=== PATIENT | female | born 1960 | race Caucasian/White ===

== ENCOUNTER → 2017-11-09 06:22 | Outpatient (CLI) | payer OTHER, SELFPAY ==
--- NOTE | 2017-11-09 12:44 | NEURO ---
NCS and/or EMG Patient Report Ordering Doctor: Bull Magaña DATE OF SERVICE: 11/09/17 Afua Mendiola is a 57-year-old female who presents for electrodiagnostic testing of the upper limbs. She reports numbness and tingling in both hands. Electrodiagnostic findings: Median motor nerve bilaterally demonstrates prolonged distal latency with normal amplitude and conduction velocity. Latency is far more prolonged on the right side. Prolonged median sensory latency is noted bilaterally, more pronounced on the right side. Normal ulnar motor latency is noted bilaterally. Normal ulnar conduction across the elbow bilaterally. Mildly prolonged right median F wave. Prolonged right ulnar sensory latency is noted. On needle EMG, all muscles tested showed no evidence of denervation with normal motor unit action potentials. Electrodiagnostic impression: This is an abnormal study in the upper limbs. 1. Electrodiagnostic findings demonstrate bilateral median mononeuropathy. This is consistent with a moderate left carpal tunnel syndrome and a highly advanced right carpal tunnel syndrome. 2. No electrodiagnostic evidence for ulnar neuropathy. If there are any further questions, please do not hesitate to contact me.
== END ==
PROVIDERS: Family Provider Internal Medicine; PCP Internal Medicine; Visit Provider Orthopaedic Surgery
DX: R20.0 Anesthesia of skin (principal); M79.641 Pain in right hand; M79.642 Pain in left hand
CPT/HCPCS: 95886; 95913

== ENCOUNTER 2023-02-17 12:01 | Emergency (ER) | payer MEDICAID, SELFPAY ==
[2023-02-17 12:01] VITALS: BP 133/108; PULSE 90; RESP 16; TEMP 36.4; O2SAT 100; BMI 29.2
--- NOTE | 2023-02-17 12:51 | EX.ED.DYSGE1 ---
HPI <RYAN Howe - Last Filed: 02/17/23 14:23> History of Present Illness Chief Complaint: Abd Pain Narrative Narrative: Patient is a 62-year-old female history of chronic pain, anxiety GERD, migraine headaches who presents to the emergency department for ongoing abdominal pain. Patient states that she has had diarrhea and abdominal cramping for the last 4 days. Patient was seen at [facility] today, was discharged approximately 1120 that came straight here. She did receive laboratory values a stool study as well as a CT scan. Patient was diagnosed with gastroenteritis, possible infectious diarrhea was placed on Cipro as well as given 3 Percocet tablets. She states that she did not get receive great discharge instructions, and was concern for small bowel obstruction, appendicitis. So she came straight here after leaving [place] ER. She does not complain of any new symptoms. PFSH <RYAN Howe - Last Filed: 02/17/23 14:23> [facility] Medical History (Updated 02/17/23 @ 14:22 by RYAN Howe) Anxiety associated with depression Arthritis Carpal tunnel syndrome, bilateral upper limbs Chronic nausea Dysphagia Enlarged thyroid Fibromyalgia GERD (gastroesophageal reflux disease) Migraines SIMONE (obstructive sleep apnea) Pain, joint, shoulder POP-Q stage 2 cystocele Prolapse of uterus Urinary frequency Vaginal atrophy Home Medications acetaminophen 650 mg tablet,extended release (Tylenol Arthritis Pain) 1,300 mg PO Q12H 02/10/23 [History Last Taken Unknown] buspirone 5 mg tablet 5 mg PO BID 02/10/23 [History Last Taken Unknown] conjugated estrogens 0.625 mg/gram vaginal cream (Premarin) 0.625 mg vaginal 2XW 02/10/23 [History Last Taken Unknown] ergocalciferol (vitamin D2) 1,250 mcg (50,000 unit) capsule 1,250 mcg PO QWEEK 02/10/23 [History Last Taken Unknown] fluticasone propionate 50 mcg/actuation nasal spray,suspension (Flonase Allergy Relief) 2 spray intranasal DAILY 02/10/23 [History Last Taken Unknown] lorazepam 0.5 mg tablet 0.5 mg PO DAILY PRN 02/10/23 [History Last Taken Unknown] naproxen 500 mg tablet 500 mg PO BID PRN 02/10/23 [History Last Taken Unknown] ondansetron 4 mg disintegrating tablet 4 mg PO Q8H PRN 02/10/23 [History Last Taken Unknown] pantoprazole 40 mg tablet,delayed release 40 mg PO DAILY 02/10/23 [History Last Taken Unknown] solifenacin 10 mg tablet 10 mg PO DAILY 02/10/23 [History Last Taken Unknown] sumatriptan succinate 100 mg tablet See Rx Instructions PO .COMPLEX 02/10/23 [History Last Taken Unknown] topiramate 50 mg tablet 50 mg PO DAILY 02/10/23 [History Last Taken Unknown] venlafaxine 150 mg capsule,extended release 24 hr 150 mg PO DAILY 02/10/23 [History Last Taken Unknown] venlafaxine 75 mg capsule,extended release 24 hr 75 mg PO DAILY 02/10/23 [History Last Taken Unknown] dicyclomine 20 mg tablet 20 mg PO TID #20 tabs 02/17/23 [Rx Last Taken Unknown] ondansetron 4 mg disintegrating tablet 4 mg PO Q8H PRN PRN Nausea #10 tabs 02/17/23 [Rx Last Taken Unknown] Allergy/AdvReac Type Severity Reaction Status Date / Time rofecoxib [From Vioxx] Allergy Mild Rash Verified 02/17/23 12:04 cat dander Allergy NEEDS Verified 02/17/23 12:04 FOLLOW-UP grass pollen Allergy NEEDS Verified 02/17/23 12:04 FOLLOW-UP horse dander Allergy NEEDS Verified 02/17/23 12:04 FOLLOW-UP house dust Allergy NEEDS Verified 02/17/23 12:04 FOLLOW-UP mold Allergy NEEDS Verified 02/17/23 12:04 FOLLOW-UP ragweed pollen Allergy NEEDS Verified 02/17/23 12:04 FOLLOW-UP tree and shrub pollen Allergy NEEDS Verified 02/17/23 12:04 FOLLOW-UP cyclobenzaprine AdvReac Elevated BP Verified 02/17/23 12:04 [From Flexeril] duloxetine [From Cymbalta] AdvReac Stuttering Verified 02/17/23 12:04 meloxicam AdvReac Stuttering Verified 02/17/23 12:04 sertraline HCl [From Zoloft] AdvReac Upset Verified 02/17/23 12:04 Stomach Family History (Updated 02/10/23 @ 16:12 by Karolina Muller) Mother Hypertension Father Hypertension Diabetes Colon cancer Sister Alzheimer disease Grandmother Stomach cancer Surgical History History of foot surgery History of hysterectomy Hx of colonoscopy Social History (Updated 02/10/23 @ 16:13 by Karolina Muller) Smoking Status: Never smoker alcohol intake: never substance use type: does not use ROS <YRAN Howe - Last Filed: 02/17/23 14:23> ROS ED ROS Narrative Constitutional: Negative for fever, chills, weight loss, weakness Eyes: Negative for vision loss, vision change, double vision ENT: Negative for any sore throat, ear pain, congestion Cardiovascular: Negative for any chest pain, tightness, palpitations Respiratory: Negative for any cough, sputum production, hemoptysis, dyspnea, dyspnea on exertion, orthopnea Gastrointestinal: Negative for any vomiting, constipation, blood in stool, blood in vomit. Positive for abdominal pain, nausea, diarrhea : Negative for any urinary frequency, dysuria, retention, blood in urine Muscle skeletal: Negative for any muscle joint pain, stiffness, arthralgias, neck pain, back pain., Positive for myalgias Neurological: Negative for any headache, syncope, numbness or tingling, dizziness Skin: Negative for any rashes, lumps, itching, abrasions, lacerations Psychiatric: Negative for any depression, anxiety, stress, suicidal ideation, homicidal ideation Hematologic: Negative for any easy bruising, excessive bruising, easy bleeding Allergies: Negative for any eczema, hives, rash EXAM <RYAN Howe - Last Filed: 02/17/23 14:23> Physical Exam Narrative Exam Narrative: Vital signs reviewed. HEET: Head normocephalic atraumatic, TMs clear bilaterally. Posterior pharynx is clear, dry mucous membranes. Nares clear bilaterally. Neck: Supple with no lymphadenopathy or tenderness. No signs of meningismus, negative jolt sign. Cardiac: Regular rate and rhythm no murmurs gallops or rubs, equal peripheral pulses bilaterally. Respiratory: Lungs clear to auscultation bilaterally. No chest tenderness. Abdomen: Soft, nontender, nondistended. No abdominal bruit or pulsatile masses. No hepatosplenomegaly Extremities: No peripheral edema, no signs of gross trauma or deformity. Active full range of motion of all extremities. Neuro: Cranial nerves II through XII intact, no focal neurological deficits. Skin: Clean dry and intact with no rash, purpura, petechiae, vesicles or pustules. Backs/flank: No CVA tenderness, no midline spinal tenderness, no deformity. Psych: Normal mood and affect. No SI, HI or acute psychosis. Const Vital Signs: 02/17/23 12:01 02/17/23 14:36 Temperature 97.5 F L Temperature Source Temporal Pulse Rate 90 Respiratory Rate 16 Blood Pressure 133/108 H 128/74 H Blood Pressure Mean 116 Pulse Ox 100 Oxygen Delivery Method Room Air <Dr. Bull Griffin MD - Last Filed: 02/17/23 16:20> Physical Exam Const Vital Signs: 02/17/23 12:01 02/17/23 14:36 Temperature 97.5 F L Temperature Source Temporal Pulse Rate 90 Respiratory Rate 16 Blood Pressure 133/108 H 128/74 H Blood Pressure Mean 116 Pulse Ox 100 Oxygen Delivery Method Room Air MDM <RYAN Howe - Last Filed: 02/17/23 14:23> [facility] Treatment and Re-Evaluation :: Patient appears generally well, patient appears nontoxic, vital signs are stable. Patient presents to the emergency department for reevaluation after being seen in [place] ER for abdominal pain, nausea, diarrhea. Patient received a full abdominal work-up, she received laboratory values as well as a CT scan of the abdomen pelvis. She was diagnosed with gastroenteritis, questionable infectious diarrhea, placed on Cipro as well as pain medicine. I believe that she is here secondary to not receiving sufficient discharge instructions. She was concerned for appendicitis, small bowel obstruction which I discussed with her is seen with a CT scan of the abdomen pelvis. She did not know this. However I will receive some records from [place] just to ensure continuation of the story as well as give the patient IV fluids, Bentyl Toradol as well as Zofran. On reassessment, the patient felt much better. I did fax the release for medical records however not received them yet. Patient did call her call light and would like to be discharged home. Patient states that her belly is feeling much more relaxed, she feels more hydrated and like to be discharged home. I did let her know that I do not have the medical records, she states that is fine, she feels well and for discharge. I do agree with this, the patient is likely suffering from gastroenteritis, she will continue her regular medications given to her by the previous hospital however I will add Bentyl as well as Zofran. She will maintain her oral intake, she was given return precaution. She will follow-up outpatient. <Dr. Bull Griffin MD - Last Filed: 02/17/23 16:20> [facility] Treatment and Re-Evaluation Comments:: Seen and evaluated independently and in conjunction with nurse practitioner. Agree with notes above unless documented otherwise. Patient with about 4 days of diffuse central upper and lower abdominal discomfort, nausea, diarrhea nonbloody. Exam: Mild diffuse lower abdominal tenderness and epigastric tenderness no guarding or rebound, normal bowel sounds no distention. Well-appearing in no distress appears hydrated. As above, patient was just at a different ER and had a very thorough-sounding work-up including diarrhea that she provided to them for testing. She was discharged with prescriptions that she has not gotten yet, it sounds like she simply did not understand the discharge instructions. While treating her with some medications and fluids here at her request, she did feel better, we requested the ancillary testing records, however she wanted to leave before they arrived which I think is fine. Discharge Plan Triage Chief Complaint: Abd Pain ED Midlevel Provider: Lei Mustafa ED Provider: Bull Griffin Dx/Rx/DC Orders Clinical Impression: Gastroenteritis, Diarrhea, Abdominal pain Instructions: ED Diet Vomiting Diarrhea, ED Gastritis (Adult) Prescriptions: New dicyclomine 20 mg tablet 20 mg PO TID Qty: 20 0RF ondansetron 4 mg tablet,disintegrating 4 mg PO Q8H PRN PRN (Reason: Nausea) Qty: 10 0RF No Action ergocalciferol (vitamin D2) 1,250 mcg (50,000 unit) capsule 1,250 mcg PO QWEEK ondansetron 4 mg tablet,disintegrating 4 mg PO Q8H PRN sumatriptan succinate 100 mg tablet See Rx Instructions PO .COMPLEX Rx Instructions: take 1 tab at onset of headache; if no relief, may repeat 1 tab after at least 2 hrs; max = 2 tabs/24 hrs PO pantoprazole 40 mg tablet,delayed release (DR/EC) 40 mg PO DAILY venlafaxine 150 mg capsule,extended release 24hr 150 mg PO DAILY Rx Instructions: [phone] daily solifenacin 10 mg tablet 10 mg PO DAILY fluticasone propionate [Flonase Allergy Relief] 50 mcg/actuation spray,suspension 2 spray intranasal DAILY Rx Instructions: administer into each nostril topiramate 50 mg tablet 50 mg PO DAILY buspirone 5 mg tablet 5 mg PO BID lorazepam 0.5 mg tablet 0.5 mg PO DAILY PRN Premarin 0.625 mg/gram cream 0.625 mg vaginal 2XW acetaminophen [Tylenol Arthritis Pain] 650 mg tablet extended release 1,300 mg PO Q12H venlafaxine 75 mg capsule,extended release 24hr 75 mg PO DAILY Rx Instructions: [phone] daily naproxen 500 mg tablet 500 mg PO BID PRN Rx Instructions: With food Primary Care Provider: Salazar Magaña Referrals: Salazar Magaña MD [Primary Care Provider] - Activity Restrictions/Additional Instructions: Please maintain your hydration Disposition Disposition: Home, Self Care Discharge Date/Time: 02/17/23 14:38
[2023-02-17] MEDS: 0.9% Normal Saline 1,000 ML 1000 ML IV (12:59)
[2023-02-17] MEDS: Ketorolac 15 MG/ML Vial IV (12:59)
[2023-02-17] MEDS: Ondansetron 4 MG/2 ML Vial IV (13:00)
[2023-02-17] MEDS: Dicyclomine 20 MG/2 ML Vial IM (13:01)
[2023-02-17 14:36] VITALS: BP 128/74
== END 2023-02-17 14:38 | disposition home or self-care (01) ==
PROVIDERS: Emergency Provider Emergency Medicine; PCP Internal Medicine; Visit Provider Emergency Medicine
DX: K52.9 Noninfective gastroenteritis and colitis, unspecified (principal); G43.909 Migraine, unspecified, not intractable, without status migrainosus; R10.9 Unspecified abdominal pain; F41.8 Other specified anxiety disorders; Z79.899 Other long term (current) drug therapy; Z79.818 Long term (current) use of other agents affecting estrogen receptors and estrogen levels; K21.9 Gastro-esophageal reflux disease without esophagitis; R35.0 Frequency of micturition; Z90.710 Acquired absence of both cervix and uterus
CPT/HCPCS: 96361; 96372; 96374; 96375; 99283; J7030; A4216; J2405

== ENCOUNTER → 2023-02-22 | Outpatient (CLI) | payer MEDICAID, SELFPAY ==
--- NOTE | 2023-02-22 | ASPIG_PTH ---
PATIENT: HAKAN MERCADO LOC: [facility] U#:[id number] AGE/SX: 62/F ROOM: RE02/22/[address]: Dr. Tracy Lopez MD : 1960 BED: DIS: 02/22/2023 SPEC #: [id number] RECD: 02/22/23 16:00 STATUS: SHELLEY REMichelle #: [id number] ANIA: 02/22/23 00:[address]: Tracy Lopez DEPT: CYTOLOGY RECD BY: Jose Hawkins ENTERED: 02/23/23 11:23 SP TYPE: ASP OUT OTHR DR: Dr. Salazar Magaña MD Tissues: A - Thyroid gland, NOS B - Thyroid gland, NOS Procedures: FNA Specimen Adequacy Special Stain Group II Surgery Specimen Level IV Cytology Other HEADER OPERATION: Fine needle aspiration, right thyroid PRE-OP DIAGNOSIS: Abnormal thyroid ultrasound TISSUE SUBMITTED: A ? FNA right thyroid fluid, B - FNA right thyroid x8 slides DIAGNOSIS CYTOLOGY A. Right thyroid fluid, fine needle aspiration (cytospin and cell block): Consistent with benign follicular/colloid nodule ([place] Category II). Adequate for evaluation. See comment. B. Right fluid, fine needle aspiration (smears): Consistent with benign follicular/colloid nodule ([place] Category II). Adequate for evaluation. See comment. SJ:trinidad 02/24/2023 COMMENT Correlation with clinical, radiologic findings and appropriate follow up are necessary. The [place] System for thyroid diagnostic categorization was used in the evaluation of this case. CYTOLOGY STUDY Slides are reviewed. CYTOLOGY GROSS A - Received is 30 ml of hazy light red fluid labeled with the patient's name and and designated per the requisition as right thyroid. Submitted for cytology preparation including cell block. B - Received are eight smears labeled with the patient's name and designated per the requisition as right thyroid. Submitted for staining. / trinidad 02/23/2023 TC:5 CPT: 59641 x2, [id number]
== END | disposition home or self-care (01) ==
PROVIDERS: PCP Internal Medicine; Visit Provider Surgery
DX: R93.89 Abnormal findings on diagnostic imaging of other specified body structures (principal)
CPT/HCPCS: 88161; 88172; 88305; 88313

== ENCOUNTER 2023-06-20 08:35 | Emergency (ER) | payer BC, MEDICAID, SELFPAY ==
[2023-06-20 08:36] VITALS: BP 123/91; PULSE 150; RESP 16; TEMP 36.2; O2SAT 96
--- NOTE | 2023-06-20 08:48 | EKG12_ITS ---
Test Reason : CP Blood Pressure : / mmHG Vent. Rate : 109 BPM Atrial Rate : 109 BPM P-R Int : 138 ms QRS Dur : 082 ms QT Int : 344 ms P-R-T Axes : 013 -51 014 degrees QTc Int : 463 ms Sinus tachycardia Left anterior fascicular block Abnormal ECG Confirmed by EDVIN ROSENBERG, KAREN ([id number]), editor department JACKELYN VALDIVIA ([id number]) on 06/22/2023 10:41:39 AM Referred By: BB Confirmed By:KAREN PARDO MD
--- NOTE | 2023-06-20 08:51 | EDS_ITS ---
HPI History of Present Illness Chief Complaint: General Illness Informant: patient Narrative Narrative: Patient presents for multiple symptoms. She states she woke up about an hour prior to arrival with nonpleuritic discomfort in her left inframammary chest and discomfort in her jaw/neck/ears. For the past week or so, she has been having symptoms of vertigo, nausea, headache, pain throughout her abdomen which she has had off and on and woke up with earlier this morning but is not bothering her as much now, pain throughout her back, and has noted that with all of this her blood pressure has been elevated. She was seen about 3 days prior to the onset of all those symptoms, she states her blood pressure was elevated at the doctor's office but she was asymptomatic with it. She takes medication for blood pressure as of 3 days ago when she went to the ER in [place] and was started on something she is not sure what it is, but states they did an MRI there because of her vertigo symptoms and it was negative. She states she was not admitted and it was not a CT scan [facility] Medical History Anxiety associated with depression Arthritis Carpal tunnel syndrome, bilateral upper limbs Chronic nausea Dysphagia Enlarged thyroid Fibromyalgia GERD (gastroesophageal reflux disease) Migraines SIMONE (obstructive sleep apnea) Pain, joint, shoulder POP-Q stage 2 cystocele Prolapse of uterus Urinary frequency Vaginal atrophy Home Medications acetaminophen 650 mg tablet,extended release (Tylenol Arthritis Pain) 1,300 mg PO Q12H 02/10/23 [History Last Taken Unknown] buspirone 5 mg tablet 5 mg PO BID 02/10/23 [History Last Taken Unknown] conjugated estrogens 0.625 mg/gram vaginal cream (Premarin) 0.625 mg vaginal 2XW 02/10/23 [History Last Taken Unknown] ergocalciferol (vitamin D2) 1,250 mcg (50,000 unit) capsule 1,250 mcg PO QWEEK 02/10/23 [History Last Taken Unknown] fluticasone propionate 50 mcg/actuation nasal spray,suspension (Flonase Allergy Relief) 2 spray intranasal DAILY 02/10/23 [History Last Taken Unknown] lorazepam 0.5 mg tablet 0.5 mg PO DAILY PRN 02/10/23 [History Last Taken Unknown] naproxen 500 mg tablet 500 mg PO BID PRN 02/10/23 [History Last Taken Unknown] ondansetron 4 mg disintegrating tablet 4 mg PO Q8H PRN 02/10/23 [History Last Taken Unknown] pantoprazole 40 mg tablet,delayed release 40 mg PO DAILY 02/10/23 [History Last Taken Unknown] solifenacin 10 mg tablet 10 mg PO DAILY 02/10/23 [History Last Taken Unknown] sumatriptan succinate 100 mg tablet See Rx Instructions PO .COMPLEX 02/10/23 [History Last Taken Unknown] topiramate 50 mg tablet 50 mg PO DAILY 02/10/23 [History Last Taken Unknown] venlafaxine 150 mg capsule,extended release 24 hr 150 mg PO DAILY 02/10/23 [History Last Taken Unknown] venlafaxine 75 mg capsule,extended release 24 hr 75 mg PO DAILY 02/10/23 [History Last Taken Unknown] dicyclomine 20 mg tablet 20 mg PO TID #20 tabs 02/17/23 [Rx Last Taken Unknown] ondansetron 4 mg disintegrating tablet 4 mg PO Q8H PRN PRN Nausea #10 tabs 02/17/23 [Rx Last Taken Unknown] meclizine 25 mg tablet 25 mg PO Q8H PRN PRN Dizziness #20 tabs 06/20/23 [Rx Last Taken Unknown] Allergy/AdvReac Type Severity Reaction Status Date / Time rofecoxib [From Vioxx] Allergy Mild Rash Verified 06/20/23 08:36 cat dander Allergy NEEDS Verified 06/20/23 08:36 FOLLOW-UP grass pollen Allergy NEEDS Verified 06/20/23 08:36 FOLLOW-UP horse dander Allergy NEEDS Verified 06/20/23 08:36 FOLLOW-UP house dust Allergy NEEDS Verified 06/20/23 08:36 FOLLOW-UP mold Allergy NEEDS Verified 06/20/23 08:36 FOLLOW-UP ragweed pollen Allergy NEEDS Verified 06/20/23 08:36 FOLLOW-UP tree and shrub pollen Allergy NEEDS Verified 06/20/23 08:36 FOLLOW-UP cyclobenzaprine AdvReac Elevated BP Verified 06/20/23 08:36 [From Flexeril] duloxetine [From Cymbalta] AdvReac Stuttering Verified 06/20/23 08:36 meloxicam AdvReac Stuttering Verified 06/20/23 08:36 sertraline HCl [From Zoloft] AdvReac Upset Verified 06/20/23 08:36 Stomach Family History (Updated 02/10/23 @ 16:12 by Karolina Muller) Mother Hypertension Father Hypertension Diabetes Colon cancer Sister Alzheimer disease Grandmother Stomach cancer Surgical History History of foot surgery History of hysterectomy Hx of colonoscopy Social History Smoking Status: Never smoker alcohol intake: never substance use type: does not use ROS ROS ED Constitutional Constitutional ED: Denies chills or fever(s) Eyes Eyes: Denies change in vision or diplopia ENT ENT ED: Reports dizziness and vertigo; Denies abnormal hearing, rhinorrhea, sore throat, throat swelling or tinnitus Cardiovascular Cardiovascular: Reports chest pain and radiating jaw, neck or arm pain; Denies palpitations Respiratory/Chest Respiratory/Chest: Denies cough or dyspnea Gastrointestinal Gastrointestinal: Reports abdominal pain and nausea; Denies diarrhea or vomiting Genitourinary Genitourinary ED: Denies dysuria or hematuria Musculoskeletal Musculoskeletal: Reports back pain, myalgias and neck pain Integumentary Denies abscess or rash Neurologic Neurologic: Reports headache(s) and vertigo; Denies paresthesias or weakness Psychiatric Psychiatric: Denies anxiety or suicidal thoughts EXAM Physical Exam Const Vital Signs: 06/20/23 08:36 06/20/23 08:45 06/20/23 09:13 Temperature 97.1 F L Temperature Source Temporal Pulse Rate 150 H Respiratory Rate 16 Respiratory Effort Normal Respiratory Pattern Normal Blood Pressure 123/91 H Blood Pressure Mean 101 Pulse Ox 96 97 Oxygen Delivery Method Room Air Room Air Positive well nourished and well developed General Appearance ED: well developed and NAD HEENT Reports moist mucous membranes normocephalic and atraumatic Eyes PERRL and EOMs intact bilaterally Neck full ROM and supple Resp normal respiratory effort and clear to auscultation bilaterally Cardio regular rate, regular rhythm and no murmurs GI non-tender and non-distended Auscultation: normoactive bowel sounds Palpation: soft Back/Spine no CVA tenderness General Back: other FROM Extremity normal to inspection General Extremety ED: Negative for edema, pulses abnormal or tenderness General Extremity: Negative for edema or pulses abnormal Neuro oriented x3, CN's II-XII intact bilaterally and no sensory deficits noted Sensorium / Orientation: awake and alert Motor Exam: strength 5/5 throughout Psych Mood & Affect: anxious Skin no rashes or lesions noted and no wounds MDM MDM MDM Narrative Medical decision making narrative: Patient's blood pressure is normal systolic of 123. She was tachycardic in triage, on my exam she is around 110, less tachycardic, she seems very anxious. Has a history of fibromyalgia, as her exam is very benign and she complains of pain everywhere except for the legs this may be related. We were able to get old records from her hospital visit 3 days ago, indeed she had an MRI that was negative for any acute ischemic abnormalities. Here her EKG is unremarkable, her initial troponin is negative, we offered her nitroglycerin after aspirin and Zofran, she stated her chest discomfort resolved prior to getting any medications, as did her jaw and ear discomfort, and she did not require any nitroglycerin. Chest x-ray 1 view on my interpretation negative. Differential includes acute coronary syndrome as well as dysrhythmias, which we do not see on her EKG here, it appears to be normal except for mild tachycardia 109, as well as GI etiologies. She is still having some vertiginous symptoms. I will prescribe her some meclizine and give her a dose here and have her follow-up with her doctor as an outpatient she is comfortable with that plan. History & Record Review Additional record(s) reviewed:: Prior outpatient record (ED visit at outside hospital see above) and No prior records Lab Data Attestation: I reviewed the patient's lab results. Labs: Laboratory Results - last 24 hr 06/20/23 06/20/23 09:00 11:12 WBC 13.9 H RBC 5.37 Hgb 14.9 Hct 46.0 MCV 85.7 MCH 27.7 MCHC 32.4 RDW Std Deviation 43.1 RDW Coeff of Bryanna 13.7 Plt Count MPV 8.2 Immature Gran % (Auto) 0.300 Neut % (Auto) 70.7 H Lymph % (Auto) 17.2 L Luce % (Auto) 10.1 H Eos % (Auto) 1.3 Baso % (Auto) 0.4 Absolute Neuts (auto) 9.8 H Absolute Lymphs (auto) 2.39 Nucleated RBC % 0 Platelet Estimate ADEQUATE Sodium 136 Potassium 3.5 Chloride 100 Carbon Dioxide 26.0 Anion Gap 10 BUN 18 Creatinine 0.95 Estim Creat Clear Calc 53.70 Est GFR (MDRD) Af Amer 77 Est GFR (MDRD) Non-Af 64 BUN/Creatinine Ratio 19.0 Glucose 111 H Calcium 9.3 Troponin I High Sens 6 7 Radiography Diagnostic Testing: Clinical Impression(s) from Imaging Studies Chest X-Ray 06/20/23 09:20 IMPRESSION: No acute thoracic pathology. Electronically Signed: Jas Rutherford MD at 9:47 EDT , Rhythm Strip Rhythm Strip: Sinus Tach Rate: 110 Ectopy: None EKG Initial EKG: Attestation: I personally reviewed and interpreted this EKG as follows: Interpretation: No Acute Injury Pattern, Sinus Tachycardia and LAFB Prior: No Prior Discharge Plan Triage Chief Complaint: General Illness ED Provider: Bull Griffin Dx/Rx/DC Orders Clinical Impression: Atypical chest pain, Vertigo Instructions: Vertigo Inner Ear Problems, ED Chest Pain, Uncertain Cause Prescriptions: New meclizine [meclizine] 25 mg tablet 25 mg PO Q8H PRN PRN (Reason: Dizziness) Qty: 20 0RF No Action ergocalciferol (vitamin D2) 1,250 mcg (50,000 unit) capsule 1,250 mcg PO QWEEK ondansetron 4 mg tablet,disintegrating 4 mg PO Q8H PRN sumatriptan succinate 100 mg tablet See Rx Instructions PO .COMPLEX Rx Instructions: take 1 tab at onset of headache; if no relief, may repeat 1 tab after at least 2 hrs; max = 2 tabs/24 hrs PO pantoprazole 40 mg tablet,delayed release (DR/EC) 40 mg PO DAILY venlafaxine 150 mg capsule,extended release 24hr 150 mg PO DAILY Rx Instructions: [phone] daily solifenacin 10 mg tablet 10 mg PO DAILY fluticasone propionate [Flonase Allergy Relief] 50 mcg/actuation spray,suspension 2 spray intranasal DAILY Rx Instructions: administer into each nostril topiramate 50 mg tablet 50 mg PO DAILY buspirone 5 mg tablet 5 mg PO BID lorazepam 0.5 mg tablet 0.5 mg PO DAILY PRN Premarin 0.625 mg/gram cream 0.625 mg vaginal 2XW acetaminophen [Tylenol Arthritis Pain] 650 mg tablet extended release 1,300 mg PO Q12H venlafaxine 75 mg capsule,extended release 24hr 75 mg PO DAILY Rx Instructions: [phone] daily naproxen 500 mg tablet 500 mg PO BID PRN Rx Instructions: With food dicyclomine 20 mg tablet 20 mg PO TID Qty: 20 0RF ondansetron 4 mg tablet,disintegrating 4 mg PO Q8H PRN PRN (Reason: Nausea) Qty: 10 0RF Primary Care Provider: Salazar Magaña Referrals: Salazar Magaña MD [Primary Care Provider] - As soon as possible Disposition Disposition: Home, Self Care
[2023-06-20] MEDS: Aspirin 81 MG TAB.CHEW 162 MG PO (09:09)
[2023-06-20] MEDS: Ondansetron 4 MG/2 ML Vial IV (09:09)
[2023-06-20 09:12] LABS: Absolute Lymphocyte Count 2.39 X10^3/uL (0.83-4.51); Absolute Neutrophil Count 9.8 X10^3/uL (2.0-7.7); Basophil# 0.06 X10^3/uL; Basophil% 0.4 % (0-1); Eosinophil# 0.18 X10^3/uL; Eosinophils% 1.3 % (0-5); Hemoglobin 14.9 g/dL (12.0-15.0); Lymphocyte # 2.39 X10^3/ul (0.83-4.51); Lymphocyte % 17.2 % (19-41); Mean Corp Hgb Conc 32.4 g/dL (32-36); Mean Corpuscular Hgb 27.7 pg (27.0-32.0); Mean Corpuscular Volume 85.7 fL (81-99); Mean Platelet Vol. 8.2 fl (6.2-12.0); Monocyte% 10.1 % (0-10); NRBC Flagged by Analyzer 0 % (0-5); Neutrophil # 9.82 X10^3/uL (2.7-7.7); Neutrophil % 70.7 % (47-70); POSITIVE COUNT YES; RBC Distribution Width CV 13.7 % (11.6-14.6); RBC Distribution Width SD 43.1 fl (35.1-43.9); Red Blood Count 5.37 M/mm3 (4.2-5.4); White Blood Count 13.9 K/mm3 (4.4-11.0)
[2023-06-20 09:13] VITALS: O2SAT 97
--- NOTE | 2023-06-20 09:20 | RAD_ITS ---
STUDY: X-RAY CHEST REASON FOR EXAM: Female, 62 years old. Chest pain TECHNIQUE: Frontal view of the chest COMPARISON: None. FINDINGS: The lungs are clear. There are no pleural effusions. There is no pneumothorax. The heart is normal in size. The visualized osseous structures are within normal limits. RAD/Chest 1 View (Portable) IMPRESSION: No acute thoracic pathology. Electronically Signed: Jas Rutherford MD at 9:47 EDT ,
[2023-06-20 09:32] LABS: Anion Gap 10 (5-15); BUN 18 mg/dL (7-18); Calcium,Total 9.3 mg/dL (8.5-10.1); Chloride 100 mmol/L (98-107); Creatinine, Serum 0.95 mg/dL (0.55-1.02); EST Glomerular Filtration Rate 64 mL/min (>60); Est Glom Filt Rate - Afr Amer 77 mL/min (>60); Glucose 111 mg/dL (74-106); Potassium 3.5 mmol/L (3.5-5.1); Sodium Level 136 mmol/L (136-145); Troponin-I HS (w/2H Reflex) 6 pg/mL (3.0-54.0)
[2023-06-20 10:00] LABS: Differential Indicated SCAN CRITERIA MET
[2023-06-20 10:01] LABS: Platelet Estimate ADEQUATE (ADEQ)
[2023-06-20 11:06] LABS: Reflex Troponin-HS? (from REC) Y
[2023-06-20 11:58] LABS: Troponin-I HS 7 pg/mL (3.0-54.0)
[2023-06-20 12:25] VITALS: BP 135/84; PULSE 105; RESP 16; O2SAT 97
[2023-06-20] MEDS: Meclizine HCl 25 MG Tablet PO (12:30)
== END 2023-06-20 12:43 | disposition home or self-care (01) ==
PROVIDERS: Emergency Provider Emergency Medicine; PCP Internal Medicine; Visit Provider Emergency Medicine
DX: R07.89 Other chest pain (principal); R42 Dizziness and giddiness; F41.8 Other specified anxiety disorders; K21.9 Gastro-esophageal reflux disease without esophagitis; G43.909 Migraine, unspecified, not intractable, without status migrainosus; Z90.710 Acquired absence of both cervix and uterus; Z79.899 Other long term (current) drug therapy
CPT/HCPCS: 71045; 80048; 84484; 85025; 93005; 96374; 99285; A4216; J2405

== ENCOUNTER 2023-08-22 08:48 | Outpatient (RCR) | payer BC, MEDICAID, SELFPAY ==
--- NOTE | 2023-08-22 10:37 | HP.SP.EV_ITS ---
History History Date of Eval: 08/22/23 Attending Doctor: Referring Doctor: Reason for Referral: CHOKING,COUGH/RX HERE Medical Diagnosis (from RX): coughing & choking espisodes Previous speech therapy: No Results: Aufa is a 62 y.o. woman who was seen at [facility] for a dysphagia evaluation. Pt lives alone at home. Pt has 1 son that live in the area ([address] [place] [address]), and one son that in a car accident a few years ago. Pt's chief complaints is choking during meals and waking up choking during the night. Other Relevant Medical History/Diagnoses/Surgery: chokes at least x1 a day for the last 6 months. No known change in medical status. Coughing as well for the last 2.5 hrs, did an allergy test to determine if its a the possible cause. Family hx of dysphagia on her father's side. Pt had covid jun 2022. Pt reports she is always the last one done eating over the last few years. She stated that she has not always been this way Medications related to this diagnosis: inhaler & coughing medication. Smoking Status: Never smoker Hx Tobacco Use: Yes Pain Is pain an issue with your current prescribed condition?: No Personal Preferred language: [place] Patient Allergies Allergies Allergies: Allergies rofecoxib [From Vioxx] Allergy (Mild, Verified 06/20/23 08:36) Rash cat dander Allergy (Verified 06/20/23 08:36) NEEDS FOLLOW-UP grass pollen Allergy (Verified 06/20/23 08:36) NEEDS FOLLOW-UP horse dander Allergy (Verified 06/20/23 08:36) NEEDS FOLLOW-UP house dust Allergy (Verified 06/20/23 08:36) NEEDS FOLLOW-UP mold Allergy (Verified 06/20/23 08:36) NEEDS FOLLOW-UP ragweed pollen Allergy (Verified 06/20/23 08:36) NEEDS FOLLOW-UP tree and shrub pollen Allergy (Verified 06/20/23 08:36) NEEDS FOLLOW-UP cyclobenzaprine [From Flexeril] Adverse Reaction (Verified 06/20/23 08:36) Elevated BP duloxetine [From Cymbalta] Adverse Reaction (Verified 06/20/23 08:36) Stuttering meloxicam Adverse Reaction (Verified 06/20/23 08:36) Stuttering sertraline HCl [From Zoloft] Adverse Reaction (Verified 06/20/23 08:36) Upset Stomach Objective Oralfacial Myology Tongue/Mandible Differentiation Horizontal: WNL Lateralization: WNL Vertical: WNL Shifting upon: Opening Dentition Dentition: Mixed Orthodontia Orthodontia: Pt with partially dentures that she does not often wear. Her natural teeth are through the canine teeth to the molars on the top left and the middle teeth through the canines on the bottom. Non molars on right top, right bottom or left bottom. Pt chews food with her gums and upper left molars. She had slowly had teeth removed since her early 20's. Eating Eating: Mouth closed Objective Dysphagia Thin Liquids Administred via: Cup Oral Transit: WNL Bolus clearance: fully cleared Gagging: No Cough: none observed/unable to assess and throat clear Pharyngeal phase: laryngeal elevation mildly restricted slow initiation Comments: 3 oz water and straw trials with no immediate cough. Through clearing noted. No change in vocal quality. Pureed Administered via: Spoon Oral Preparation: WNL Oral Transit: WNL Bolus clearance: fully cleared Gagging: No Cough: none observed/unable to assess Pharyngeal phase: immediate laryngeal elevation Moist & Minced Administered via: Spoon Oral Preparation: WNL Oral Transit: Delay > 1 seconds Bolus clearance: no clearance Gagging: No Cough: delayed Pharyngeal phase: suspect pharyngeal deficits Patient Report: Pt reported one bite feeling like it went down funny & she coughed (delayed) x1. Throat clear x1. Regular Oral Transit: Delay > 10 seconds Bolus clearance: significant clearance/minimal residue Patient Report: pt reports occasional issues with potato chips & reported that the dry cookie reminded her of this. Pt with a delayed cough as well. Comments: Pt with missing dentation. Swallowing Impairment Contributing Factors to Swallowing Impairment: Reduced Oral Strength/Coordination/Sensation, Mastication Inefficiency and Delayed Swallow Initiation Impact Comments: some slowing of cognitive (reading a book, concentration, memory). no direct safety concerns. Pt stated that she has not considered menopause as a re ason, but she did get a hysterectomy in her 30's. Recommendations Modified Barium Swallow/Cookie Swallow Recommended: No Swallowing Treatment: Yes Diet Texture Recommendations Solids: Regular (Level 7) and Easy to Chew (Level 7) Liquids: Thin (Level 0) Other: A FEES instrumental assessment is recommended to further assess swallow function and rule out aspiration. Pt presents with coughing through the meal and throat clearing. Pt also experiencing a choking episode at least x1 a day. An instrumental assessment is required to make an informed decision on diet level, selecting appropriate oropharyngeal exercises, and testing compensatory strategies. Safety Saftey Precautions/Swallowing Recommendations (Check all that Apply): Reduce Distractions, Small Sips & Bites when Eating and Alternate Liquids & Solids Results Swallowing Within Normal Limits: No Swallowing Diagnosis: Dysphagia Unspecified (R13.10) Swallowing Performance Scale Swallowing Performance Scale Swallowing Performance Scale Result: 4 Mild to Moderate Reference: Neuro-QoL instrument Radiation Oncology Patient Plan Recommendations MBS: No Treatment Warranted: Yes Treatment Warranted: Dysphagia and Other: Comment: FEES assessment Progress Prognosis: Excellent Frequency Frequency: x1 Additional (Frequency): will determine further POC after FEES assessment Duration: 4 Weeks Goals that are Established Determination:: Goals will be added/modified as deemed necessary and appropriate. Therapy will be discontinued when results of re-evaluation indicate therapy is no longer needed or lack of progress has been documented. Goal #1-5 Goal #1: Pt will participate in a Fiberoptic Endoscopic Evaluation of Swallowing (FEES) assessment within 3 weeks of her initial evaluation to objectively assess swallowing function and anatomy of the swallowing/voicing to determine an appropriate diet level, rule out aspiration, and determine appropriate exercises/compensatory strategies. Education Patient has Indicated that the Following Identified Educational Needs: None The Patient has indicated that they have no educational or learning abilities that may effect their care.: Yes Patient Instruction Patient Education: Diagnosis, Treatment Plan, Goals and Diet Level Person Taught: Patient Teaching Method: Discussion Response to teaching: Verbalize understanding
== END 2023-08-22 19:00 | disposition home or self-care (01) ==
LOC: SP 08:48
PROVIDERS: PCP Internal Medicine; Referring Provider Internal Medicine; Visit Provider Internal Medicine
DX: R13.10 Dysphagia, unspecified (principal); R05.3 Chronic cough; T17.308D Unspecified foreign body in larynx causing other injury, subsequent encounter
CPT/HCPCS: 92610

== ENCOUNTER 2023-08-26 08:46 | Outpatient (CLI) | payer BC, MEDICAID, SELFPAY ==
[2023-08-26 10:17] LABS: Erythrocyte Sedimentation Rate 3 mm/hr (0-30)
[2023-08-26 10:21] LABS: Absolute Lymphocyte Count 2.12 X10^3/uL (0.83-4.51); Absolute Neutrophil Count 3.6 X10^3/uL (2.0-7.7); Basophil# 0.07 X10^3/uL; Basophil% 1.1 % (0-1); Eosinophil# 0.29 X10^3/uL; Eosinophils% 4.4 % (0-5); Hematocrit 40.3 % (37-47); Hemoglobin 12.5 g/dL (12.0-15.0); Lymphocyte # 2.12 X10^3/ul (0.83-4.51); Lymphocyte % 32.3 % (19-41); Mean Corpuscular Hgb 25.9 pg (27.0-32.0); Mean Corpuscular Volume 83.4 fL (81-99); Mean Platelet Vol. 8.7 fl (6.2-12.0); Monocyte# 0.53 X10^3/uL; Monocyte% 8.1 % (0-10); NRBC Flagged by Analyzer 0 % (0-5); Neutrophil # 3.55 X10^3/uL (2.7-7.7); Neutrophil % 53.9 % (47-70); Platelet Count 318 K/mm3 (150-450); RBC Distribution Width CV 12.8 % (11.6-14.6); RBC Distribution Width SD 38.7 fl (35.1-43.9); Red Blood Count 4.83 M/mm3 (4.2-5.4); White Blood Count 6.6 K/mm3 (4.4-11.0)
[2023-08-26 10:44] LABS: ALB/GLOB Ratio 1.1 RATIO (0.9-2.4); AST(SGOT) 24 U/L (15-37); Alanine Aminotransfer ALT/SGPT 32 U/L (13-56); Albumin, Serum 3.8 g/dL (3.2-5.0); Alkaline Phosphatase 114 U/L (45-117); Anion Gap 6 (5-15); BUN 11 mg/dL (7-18); CRP < 2.90 mg/L (0.0-3.0); Calcium,Total 8.8 mg/dL (8.5-10.1); Chloride 110 mmol/L (98-107); Creatinine, Serum 0.78 mg/dL (0.55-1.02); EST Glomerular Filtration Rate 79 mL/min (>60); Est Glom Filt Rate - Afr Amer 96 mL/min (>60); Free T3 3.1 pg/mL (2.18-3.98); Globulin 3.6 g/dL (2.2-4.2); Glucose 85 mg/dL (74-106); LDH 255 U/L (84-246); Potassium 3.9 mmol/L (3.5-5.1); Protein, Total 7.4 g/dL (6.4-8.2); Sodium Level 140 mmol/L (136-145); T4 Free Direct 0.98 ng/dL (0.76-1.46); Thyroid Stim Hormone (TSH) 0.74 uIU/mL (0.358-3.74)
[2023-08-29 13:08] LABS: Anti-Centromere B Ab <0.2 AI (0.0-0.9); Anti-Chromatin <0.2 AI (0.0-0.9); Anti-Jo <0.2 AI (0.0-0.9); Anti-Scleroderma-70 AB <0.2 AI (0.0-0.9); Anti-dsDNA Ab 2 IU/mL (0-9); Beef <0.10 kU/L (Class 0); Chocolate <0.10 kU/L (Class 0); Codfish <0.10 kU/L (Class 0); Corn <0.10 kU/L (Class 0); Egg, Whole <0.10 kU/L (Class 0); Milk (Cow) <0.10 kU/L (Class 0); Mussels <0.10 kU/L (Class 0); Peanut <0.10 kU/L (Class 0); Pork <0.10 kU/L (Class 0); RNP Ab <0.2 AI (0.0-0.9); SJOGREN'S Anti-SS-A test < 0.2 AI (0.0-0.9); SJOGREN'S Anti-SS-B test < 0.2 AI (0.0-0.9); Salmon <0.10 kU/L (Class 0); Shrimp <0.10 kU/L (Class 0); Smith Ab <0.2 AI (0.0-0.9); Soybean <0.10 kU/L (Class 0); Tuna <0.10 kU/L (Class 0); Wheat <0.10 kU/L (Class 0)
[2023-08-30 14:09] LABS: Cytoplasmic Ab (C-ANCA) <1:20 titer (Neg:<1:20); Endomysial Antibody IgA Negative (Negative); Immunoglobulin A 312 mg/dL (87-352); Immunoglobulin E 8 IU/mL (6-495); Immunoglobulin G 1031 mg/dL (586-1602); Immunoglobulin M 160 mg/dL (26-217); Perinuclear Ab (P-ANCA) <1:20 titer (Neg:<1:20); t-Transglutaminase IgA <2 U/mL (0-3)
== END 2023-08-26 23:59 | disposition home or self-care (01) ==
LOC: LAB 08:58
PROVIDERS: PCP Internal Medicine; Referring Provider Internal Medicine Gastroenterology; Visit Provider Internal Medicine Gastroenterology
DX: R11.0 Nausea (principal); K21.9 Gastro-esophageal reflux disease without esophagitis
CPT/HCPCS: 36415; 80053; 82784; 82785; 83516; 83615; 84439; 84443; 84481; 85025; 85652; 86003; 86005; 86140; 86225; 86235; 86255; 86256; 86335

== ENCOUNTER 2023-09-06 13:06 | Day surgery (SDC) | payer BC, MEDICAID, SELFPAY ==
[2023-09-06 13:33] VITALS: BP 133/90; PULSE 90; RESP 16; TEMP 36.5; O2SAT 100; BMI 29.4
[2023-09-06] MEDS: Lactated Ringers 1,000 ML 15 ML IV (13:40)
--- NOTE | 2023-09-06 14:15 | COLBX_PTH ---
PATHOLOGY RESULTS PATIENT: HAKAN MERCADO LOC: EN U#:[id number] AGE/SX: 62/F ROOM: RE09/06/[address]: Dr. Lawrence Salter DO : 1960 BED: DIS: 09/06/2023 SPEC #: [id number] RECD: 09/07/23 07:26 STATUS: SHELLEY JEFFREY #: [id number] ANIA: 09/06/23 14:[address]: Lawrence Salter DEPT: SURGICAL PATHOLOGY RECD BY: Gini Garcia ENTERED: 09/07/23 07:28 SP TYPE: COLON BX OTHR DR: Dr. Salazar Magaña MD Tissues: Duodenum, NOS Gastric mucous membrane Ascending colon Cecum, NOS Ileum, NOS SPLENIC FLEXURE Procedures: Surgery Specimen Level IV HEADER OPERATION: Colonoscopy with biopsy and polypectomy, EGD with biopsy PRE-OP DIAGNOSIS: Chronic constipation and nausea, GERD TISSUE SUBMITTED: A - Duodenum biopsy, B - Gastric body biopsy, C - Ascending colon polyp biopsy, D - Cecal polyp biopsy, E - Terminal ileum biopsy, F - Splenic flexure polyp MICROSCOPIC DIAGNOSIS A. Duodenum, biopsy: No pathologic change. B. Gastric body, biopsy: Mild chronic gastritis. See comment. C. Ascending colon polyp, biopsy: Tubular adenoma. D. Cecal polyp, biopsy: Tubular adenoma. E. Terminal ileum, biopsy: No pathologic change. F. Colonic polyp at splenic flexure, biopsy: Tubular adenoma. AM:trinidad 09/08/2023 COMMENT B. The results of immunohistochemistry for Helicobacter pylori will be reported separately ([id number]). MICROSCOPIC DESCRIPTION Slides are reviewed. GROSS DESCRIPTION A - Received in fixative is one container labeled with the patient's name and designated duodenum biopsy. The specimen consists of one irregular fragment of light perez soft tissue that measures 0.4 x 0.3 x 0.1 cm. The specimen is totally submitted in one cassette. B - Received in fixative is one container labeled with the patient's name and designated gastric body biopsy. The specimen consists of multiple irregular fragments of light perez soft tissue that in aggregate measure 0.8 x 0.5 x 0.1 cm. The specimen is totally submitted in one cassette. C - Received in fixative is one container labeled with the patient's name and designated ascending colon polyp biopsy. The specimen consists of two irregular fragments of light perez soft tissue that in aggregate measure 0.6 x 0.3 x 0.1 cm. The specimen is totally submitted in one cassette. D - Received in fixative is one container labeled with the patient's name and designated cecal polyp biopsy. The specimen consists of one irregular fragment of light perez soft tissue that measures 0.5 x 0.3 x 0.1 cm. The specimen is totally submitted in one cassette. E - Received in fixative is one container labeled with the patient's name and designated terminal ileum biopsy. The specimen consists of two irregular fragments of light perez soft tissue that in aggregate measure 0.6 x 0.4 x 0.1 cm. The specimen is totally submitted in one cassette. F - Received in fixative is one container labeled with the patient's name and designated splenic flexure polyp. The specimen consists of multiple irregular fragments of light perez soft tissue that in aggregate measure 0.8 x 0.5 x 0.1 cm. The specimen is totally submitted in one cassette. / SJ:rg 09/07/2023 TC:3 CPT: 40153 x6
--- NOTE | 2023-09-06 14:15 | IMM_PTH ---
PATHOLOGY RESULTS PATIENT: HAKAN MERCADO LOC: EN U#:[id number] AGE/SX: 62/F ROOM: RE09/06/[address]: Dr. Lawrence Salter DO : 1960 BED: DIS: 09/06/2023 SPEC #: [id number] RECD: 09/07/23 10:56 STATUS: SHELLEY REQ #: [id number] ANIA: 09/06/23 14:[address]: Lawrence Salter DEPT: IMMUNOHISTOCHEMISTRY RECD BY: Jael Tidwell ENTERED: 09/07/23 10:58 SP TYPE: IMMUNO OTHR DR: Dr. Salazar Magaña MD Tissues: Stomach, NOS Procedures: H Pylori (initial) PHYSICIAN & INSTITUTION [place] [id number] SPECIMEN INFORMATION: Tissue Source: B - Gastric body Clinical Info: Chronic constipation and nausea, GERD Specimen Number: [id number] CPT code: 39110 METHODOLOGY: Deparaffinized sections of prefer/formalin-fixed tissue or PAP/DQ stained slides are incubated with monoclonal/polyclonal antibodies/oligonucleotide probes. Localization is made via biotin free immunoperoxidase method. Appropriate controls are performed and reacted as expected. Results on target cell population are indicated in the following table: RESULTS: ANTIBODY / CLONE RESULT Block B H Pylori (polyclonal) negative These tests were developed and their performance characteristics determined by [facility]. They may not have been cleared or approved by the U.S. Food and Drug Administration. The FDA has determined that such clearance or approval is not necessary. The above immunohistochemical/dualISH markers are ordered and reviewed by the Pathologist. INTERPRETATION: B. Gastric body, biopsy: Negative for Helicobacter pylori organisms. AM:trinidad 09/08/2023
--- NOTE | 2023-09-06 14:42 | PCM.HP.BLA ---
History and Physical Date of Admission: 09/06/23 62 F who presents to the office today for PCP OV 12.07.22 for chronic conditions of itching skin, migraines with nausea, chronic pain, SIMONE with CPAP use, depression/anxiety. GERD managed with protonix 40mg BID but has experienced and increase of heartburn/reflux frequency; denies dysphagia but reports choking weekly. *BGI established 08.26.23 nausea without emesis but managed with frequent Zofran daily, reflux occurring daily managed with protonix (80mg QAM), constipation with one BM every few days with hard stool and straining. ROS Const Constitutional: No anorexia, fatigue, fever(s), weight change or sleep problems Eyes Eyes: No change in vision ENT ENT: No abnormal hearing, difficulty swallowing, mouth lesions, tongue swelling or throat swelling Resp Respiratory: No cough or shortness of breath Cardio Cardiology: No chest pain at rest, chest pain with exertion, shortness of breath or dyspnea on exertion Gastro GI: No difficulty swallowing Genitourinary-Female: No difficulty urinating or burning urination Musc Musculoskeletal: No joint pain, joint swelling, muscle weakness or decreased muscle mass Skin Skin: No hair loss in leg, yellowing of the eye, itchy eyes, rash, skin ulcer or skin swelling Neuro Neurology: No abnormal hearing, abnormal movements, confusion, unsteady gait/balance or memory loss Psych Psychiatric: No anxiety, No confusion and No memory loss Endo Endocrine: No fatigue or weight change Aller/Imm Allergy/Immunologic: No itchy eyes, throat swelling or tongue swelling Fabio/Lymp Hematologic/Lymphatic: No easy bleeding, easy bruising or enlarged lymph nodes Exam Const General: cooperative and comfortable Nutritional Appearance: average body habitus and well nourished [facility] Head: normal to inspection Ears: hearing grossly normal bilaterally Nose: external nose normal Face and sinus: normal facial exam Mouth: oral mucosae normal Throat: posterior oropharynx normal Eyes General: appearance normal, both eyes and all related structures Neck Neck: normal visual inspection Chest Chest palpation & inspection: normal inspection of the chest and normal palpation of entire chest wall Resp Effort & Inspection: normal respiratory effort Auscultation: Bilateral: Clear to Auscultation Cardio Palpation: normal PMI Rate: regular rate Rhythm: regular rhythm GI Inspection: normal to inspection Auscultation: normal bowel sounds Percussion: normal to percussion Palpation: no hepatosplenomegaly Skin General: no rashes or lesions noted Neuro General: patient alert Extrem General: normal to inspection Psych Affect: normal affect Quality Reporting Tobacco Screening ([facility] 138) Smoking Status: Never smoker Assessment and Plan Assessment and Plan (1) Chronic constipation: Status: Chronic Plan: 70-year-old with chronic idiopathic constipation with possible slow transit constipation or medication induced constipation secondary to frequent use of Zofran. I explained to her that Zofran can cause constipation especially in a patient that has CIC. A she does have a strong family history of colon cancer in her father. We will do a colonoscopy to evaluate her lower GI tract to make sure there is no sign of pelvic floor dysfunction, rectocele, diverticular disease or any underlying ischemic disease/related to her change in bowel habits. Elevated (2) Chronic nausea: Status: Chronic Plan: Differential diagnosis for chronic nausea in this particular patient is gastroparesis due to her history of migraine disorders, gastroesophageal reflux disease, celiac disease, food allergy, H. pylori associated gastritis. She will undergo food allergy testing along with functional testing that encompasses a gastric emptying study. We will also perform an upper endoscopy to evaluate her anatomy of her upper GI tract. (3) GERD (gastroesophageal reflux disease): Status: Chronic Qualifiers: Esophagitis presence: without esophagitis Qualified Code(s): K21.9 - Gastro-esophageal reflux disease without esophagitis Orders: Orders EGD 09/06/23 K21.9 - Gastro-esophageal reflux disease without esophagitis, K59.09 - Other constipation, R11.0 - Nausea Colonoscopy 09/06/23 K21.9 - Gastro-esophageal reflux disease without esophagitis, K59.09 - Other constipation, R11.0 - Nausea Allergen, Food Profile 14 Today K21.9 - Gastro-esophageal reflux disease without esophagitis CBC W/Diff, Automated Today R11.0 - Nausea Erythrocyte Sed Rate Today R11.0 - Nausea Immunoglobulins G/A/M/E Today R11.0 - Nausea Comprehensive Metabolic Profil Today R11.0 - Nausea Immunofixation Urine Today R11.0 - Nausea CRP Today R11.0 - Nausea ANCA Today R11.0 - Nausea LDH Today R11.0 - Nausea NAHUM Comprehensive Panel Today R11.0 - Nausea Thyroid Stim Hormone (TSH) Today R11.0 - Nausea Celiac Disease Profile Today R11.0 - Nausea Free T3 Today R11.0 - Nausea T4 Free Direct Today R11.0 - Nausea I have examined the patient and the H&P has been reviewed. There are no clinical changes since date of exam.
[2023-09-06 15:21] VITALS: BP 122/84; BP 133/90; PULSE 79; RESP 16; TEMP 36.2; O2SAT 96
[2023-09-06 15:23] VITALS: BP 124/84; BP 133/90; PULSE 76; RESP 16; O2SAT 95
--- NOTE | 2023-09-06 15:25 | OP.EGD_ITS ---
Patient Name: Afua Mendiola Procedure Date: 09/06/2023 2:34 PM Date of : 1960 Age: 62 Procedure: Upper GI endoscopy Indications: Epigastric abdominal pain Providers: Lawrence Salter DO Referring MD: Lawrence Salter DO Medicines: Monitored Anesthesia Care Patient Profile: This is a 62 year old female. Refer to note in patient chart for documentation of history and physical. Patient has symptoms of chronic abdominal cramping and chronic epigastric abdominal pain. Complications: No immediate complications. Procedure: Pre-Anesthesia Assessment: - Prior to the procedure, a History and Physical was performed, and patient medications and allergies were reviewed. The patient is competent. The risks and benefits of the procedure and the sedation options and risks were discussed with the patient. All questions were answered and informed consent was obtained. Patient identification and proposed procedure were verified by the physician in the pre-procedure area. Mental Status Examination: alert and oriented. Airway Examination: normal oropharyngeal airway and neck mobility. Respiratory Examination: clear to auscultation. CV Examination: normal. Prophylactic Antibiotics: The patient does not require prophylactic antibiotics. Prior Anticoagulants: The patient has taken no anticoagulant or antiplatelet agents. ASA Grade Assessment: II - A patient with mild systemic disease. After reviewing the risks and benefits, the patient was deemed in satisfactory condition to undergo the procedure. The anesthesia plan was to use monitored anesthesia care (MAC). Immediately prior to administration of medications, the patient was re-assessed for adequacy to receive sedatives. The heart rate, respiratory rate, oxygen saturations, blood pressure, adequacy of pulmonary ventilation, and response to care were monitored throughout the procedure. The physical status of the patient was re-assessed after the procedure. After obtaining informed consent, the endoscope was passed under direct vision. Throughout the procedure, the patient's blood pressure, pulse, and oxygen saturations were monitored continuously. The Colonoscope was introduced through the mouth, and advanced to the second part of duodenum. The upper GI endoscopy was accomplished without difficulty. The patient tolerated the procedure well. Scope In: 2:47:10 PM Scope Out: 2:51:43 PM Total Procedure Duration Time 0 hours 4 minutes 33 seconds Findings: The examined esophagus was normal. Diffuse mildly erythematous mucosa without bleeding was found in the gastric body. Biopsies were taken with a cold forceps for histology. Verification of patient identification for the specimen was done. Estimated blood loss was minimal. Biopsies were taken with a cold forceps for Helicobacter pylori testing. Verification of patient identification for the specimen was done. Estimated blood loss was minimal. Mildly erythematous mucosa without active bleeding and with no stigmata of bleeding was found in the first portion of the duodenum. Biopsies were taken with a cold forceps for histology. Verification of patient identification for the specimen was done. Estimated blood loss was minimal. Impression: - Normal esophagus. - Erythematous mucosa in the gastric body. Biopsied. - Erythematous duodenopathy. Biopsied. Recommendation: - Discharge patient to home. - Resume previous diet. - Continue present medications. - Await pathology results. Procedure Code(s): --- Professional --- 99280, Esophagogastroduodenoscopy, flexible, transoral; with biopsy, single or multiple CPT copyright 2021 [employer]. All rights reserved. The codes documented in this report are preliminary and upon aprn review may be revised to meet current compliance requirements. Lawrence Salter DO 09/06/2023 3:25:23 PM This report has been signed electronically. Number of Addenda: 0 Note Initiated On: 09/06/2023 2:34 PM
--- NOTE | 2023-09-06 15:25 | OP.CCLET_ITS ---
09/06/2023 Salazar Magaña [address] [place] [address] Re : Upper GI endoscopy procedure for Afua Medniola Dear Dr. Magaña This procedure was performed on Wednesday, September 06, 2023. My impressions and recommendations are as follows: Impressions : - Normal esophagus. - Erythematous mucosa in the gastric body. Biopsied. - Erythematous duodenopathy. Biopsied. Recommendations : - Discharge patient to home. - Resume previous diet. - Continue present medications. - Await pathology results. My findings are described in the full procedure note, which is enclosed. If I can be of further assistance, please feel free to contact me at . Sincerely, Lawrence Salter, 09/06/2023 3:25:23 PM This report has been signed electronically.
[2023-09-06 15:30] VITALS: BP 119/89; BP 133/90; PULSE 77; RESP 16; O2SAT 99
--- NOTE | 2023-09-06 15:30 | OP.COLON_ITS ---
Patient Name: Afua Mendiola Procedure Date: 09/06/2023 2:51 PM Date of : 1960 Age: 62 Procedure: Colonoscopy Indications: Screening for colorectal malignant neoplasm Providers: Lawrence Salter DO Referring MD: Lawrence Salter DO Medicines: Monitored Anesthesia Care Patient Profile: This is a 62 year old female. Refer to note in patient chart for documentation of history and physical. Patient has symptoms of chronic abdominal cramping and chronic epigastric abdominal pain. Last Colonoscopy: date unknown. Unable to locate last colonoscopy report. Complications: No immediate complications. Procedure: Pre-Anesthesia Assessment: - Prior to the procedure, a History and Physical was performed, and patient medications and allergies were reviewed. The patient is competent. The risks and benefits of the procedure and the sedation options and risks were discussed with the patient. All questions were answered and informed consent was obtained. Patient identification and proposed procedure were verified by the physician in the pre-procedure area. Mental Status Examination: alert and oriented. Airway Examination: normal oropharyngeal airway and neck mobility. Respiratory Examination: clear to auscultation. CV Examination: normal. Prophylactic Antibiotics: The patient does not require prophylactic antibiotics. Prior Anticoagulants: The patient has taken no anticoagulant or antiplatelet agents. ASA Grade Assessment: II - A patient with mild systemic disease. After reviewing the risks and benefits, the patient was deemed in satisfactory condition to undergo the procedure. The anesthesia plan was to use monitored anesthesia care (MAC). Immediately prior to administration of medications, the patient was re-assessed for adequacy to receive sedatives. The heart rate, respiratory rate, oxygen saturations, blood pressure, adequacy of pulmonary ventilation, and response to care were monitored throughout the procedure. The physical status of the patient was re-assessed after the procedure. After I obtained informed consent, the scope was passed under direct vision. Throughout the procedure, the patient's blood pressure, pulse, and oxygen saturations were monitored continuously. The Colonoscope was introduced through the anus and advanced to the terminal ileum. The colonoscopy was performed without difficulty. The patient tolerated the procedure well. The quality of the bowel preparation was adequate. The terminal ileum, ileocecal valve, appendiceal orifice, and rectum were photographed. Scope In: 2:54:49 PM Scope Withdrawal Time 0 hours 15 minutes 2 seconds Scope Out: 3:16:44 PM Total Procedure Duration Time 0 hours 21 minutes 55 seconds Findings: The perianal and digital rectal examinations were normal. Mild rectal prolapse was present. Multiple small and large-mouthed diverticula were found in the recto-sigmoid colon, sigmoid colon and descending colon. A 15 mm polyp was found in the splenic flexure. The polyp was sessile. The polyp was removed with a hot snare. Resection and retrieval were complete. Verification of patient identification for the specimen was done. Estimated blood loss was minimal. Two sessile polyps were found in the ascending colon and cecum. The polyps were 5 mm in size. These polyps were removed with a cold snare. Resection and retrieval were complete. Verification of patient identification for the specimen was done. Estimated blood loss was minimal. A patchy area of the terminal ileum was congested. Biopsies were taken with a cold forceps for histology. Verification of patient identification for the specimen was done. Estimated blood loss was minimal. Impression: - Rectal prolapse. - Diverticulosis in the recto-sigmoid colon, in the sigmoid colon and in the descending colon. - One 15 mm polyp at the splenic flexure, removed with a hot snare. Resected and retrieved. - Two 5 mm polyps in the ascending colon and in the cecum, removed with a cold snare. Resected and retrieved. - Congested mucosa in the terminal ileum. Biopsied. Recommendation: - Discharge patient to home. - Resume previous diet. - Continue present medications. - Await pathology results. - Repeat colonoscopy in 3 years for surveillance. Procedure Code(s): --- Professional --- 12521, Colonoscopy, flexible; with removal of tumor(s), polyp(s), or other lesion(s) by snare technique 20599, 59, Colonoscopy, flexible; with biopsy, single or multiple CPT copyright 2021 [employer]. All rights reserved. The codes documented in this report are preliminary and upon invoice coder review may be revised to meet current compliance requirements. Lawrence Salter DO 09/06/2023 3:29:58 PM This report has been signed electronically. Number of Addenda: 0 Note Initiated On: 09/06/2023 2:51 PM
--- NOTE | 2023-09-06 15:30 | OP.CCLET_ITS ---
09/06/2023 Salazar Magaña [address] [place] [address] Re : Colonoscopy procedure for Afua Mendiola Dear Dr. Magaña This procedure was performed on Wednesday, September 06, 2023. My impressions and recommendations are as follows: Impressions : - Rectal prolapse. - Diverticulosis in the recto-sigmoid colon, in the sigmoid colon and in the descending colon. - One 15 mm polyp at the splenic flexure, removed with a hot snare. Resected and retrieved. - Two 5 mm polyps in the ascending colon and in the cecum, removed with a cold snare. Resected and retrieved. - Congested mucosa in the terminal ileum. Biopsied. Recommendations : - Discharge patient to home. - Resume previous diet. - Continue present medications. - Await pathology results. - Repeat colonoscopy in 3 years for surveillance. My findings are described in the full procedure note, which is enclosed. If I can be of further assistance, please feel free to contact me at . Sincerely, Lawrence Salter, 09/06/2023 3:29:58 PM This report has been signed electronically.
[2023-09-06 15:35] VITALS: BP 123/92; BP 133/90; PULSE 76; RESP 16; TEMP 36.6; O2SAT 99
[2023-09-06 15:56] VITALS: BP 133/90
== END 2023-09-06 16:11 | disposition home or self-care (01) ==
LOC: EN 13:08 → AC 13:09
PROVIDERS: PCP Internal Medicine; Referring Provider Internal Medicine; Visit Provider Internal Medicine Gastroenterology
PROC: 0DJD8ZZ Inspection of Lower Intestinal Tract, Via Natural or Artificial Opening Endoscopic (ICD-10-PCS; CPT 45378; principal; 2023-09-06 14:10)
DX: K59.09 Other constipation (principal); K63.5 Polyp of colon; K62.3 Rectal prolapse; K57.30 Diverticulosis of large intestine without perforation or abscess without bleeding; K63.89 Other specified diseases of intestine; K21.9 Gastro-esophageal reflux disease without esophagitis; Z79.899 Other long term (current) drug therapy; R11.0 Nausea; K29.50 Unspecified chronic gastritis without bleeding
CPT/HCPCS: 45385; 43239; 45380; 88305; 88342; J7120; J2405

== ENCOUNTER 2025-06-03 09:55 | Emergency (ER) | payer MEDICAID, SELFPAY ==
[2025-06-03 09:56] VITALS: BP 146/93; PULSE 92; RESP 17; TEMP 36.3; O2SAT 100; BMI 29.7
--- NOTE | 2025-06-03 11:01 | EDS_ITS ---
HPI History of Present Illness Chief Complaint: Chest Other Narrative Narrative: Chief complaint and HPI: 64-year-old female with past medical history of costochondritis, GERD presents for evaluation of left lateral rib pain. Patient states on 05/24/2025 she was cleaning out her car in which she bent over the seat to put a mat down. She states she developed pain in her lateral left ribs and underneath her breast. She was seen by an urgent care in which she was diagnosed with a muscle strain. She has been taking ibuprofen with some relief. Patient states that the pain has continued which is why she presents today. Pain is worse with movement and stretching. Describes it as sharp and crampy. She denies any fever, chills, shortness of breath, true chest pain, abdominal pain, nausea, vomiting, numbness/tingling. Review of systems: See HPI Medications: As listed on the chart Allergies: As listed on the chart PFSH: Per chart Vital signs: As listed on the chart. Reviewed. Physical exam: Gen: A&O x3, NAD Head: Normocephalic, atraumatic Eyes: No sclera icterus, conjunctiva clear ENT: Moist mucous membranes Neck: Trachea midline, No JVD, Nontender, full range of motion CV: RRR, no murmurs, patient has tenderness to palpation to the lateral left ribs diffusely without obvious signs of trauma or crepitus-recreates patient's pain with palpitation, radial pulses +2 bilaterally Resp: Lungs CTA BL, no w/r/c GI: Abd soft, non-distended, non-tender, no r/r/g Musc: Full ROM, no deformity, no midline spinal TTP, no jenni step-offs Skin: Warm, dry, intact Neuro: Alert, oriented, grossly intact, sensation intact Psych: Cooperative, appropriate mood and affect [facility] Medical History Wears glasses Wears partial dentures Depression Anxiety Rash History of steroid therapy Restless legs Non-smoker CPAP (continuous positive airway pressure) dependence Sleep apnea Leg cramps History of edema Enlarged thyroid Vaginal atrophy Urinary frequency Prolapse of uterus POP-Q stage 2 cystocele Pain, joint, shoulder SIMONE (obstructive sleep apnea) Migraines Fibromyalgia Carpal tunnel syndrome, bilateral upper limbs Arthritis Anxiety associated with depression Dysphagia Home Medications ?Medication ?Instructions ?Recorded ?Last Taken ?Type ergocalciferol (vitamin D2) 1,250 1,250 mcg PO .COMPLE X 02/10/23 05/26/25 History mcg (50,000 unit) capsule fluticasone propionate 50 2 spray intranasal DAILY 10/04 Unknown History mcg/actuation nasal spray,suspension (Flonase Allergy Relief) ondansetron 4 mg disintegrating 4 mg PO Q8H PRN nausea and vomiting 02/10/23 Unknown History tablet sumatriptan succinate 100 mg tablet See Rx Instruction s PO .COMPLEX 02/10/23 Unknown History albuterol sulfate 90 mcg/actuation 2 puff inhalation Q 6H PRN 04/18/25 Unknown History aerosol inhaler (Ventolin HFA) shortness of breath or wheezing pantoprazole 40 mg tablet,delayed 40 mg PO QDAY 06/02/25 History release solifenacin 10 mg tablet 10 mg PO QDAY 04/18/25 Unkno wn History ibuprofen 200 mg tablet (Advil) 600 mg PO Q4H PRN pain 06/03/25 06/02/25 History mometasone 220 mcg/actuation(30 1 inh inhalation QHS 0 06/03/25 06/02/25 History doses) breath activated powder inhaler (Asmanex Twisthaler) orphenadrine citrate 100 mg 100 mg PO Q12H PRN muscle spasm 3 06/03/25 Unknown Rx tablet,extended release days #6 tabs paroxetine HCl 40 mg tablet 40 mg PO DAILY 06/03/25 Un known History Allergy/AdvReac Type Severity Reaction Status Date / Time rofecoxib (From Vioxx) Allergy Mild Rash Verified 06/03/25 09:57 cat dander Allergy NEEDS Verified 06/03/25 09:57 FOLLOW-UP grass pollen Allergy NEEDS Verified 06/03/25 09:57 FOLLOW-UP horse dander Allergy NEEDS Verified 06/03/25 09:57 FOLLOW-UP house dust Allergy NEEDS Verified 06/03/25 09:57 FOLLOW-UP mold Allergy NEEDS Verified 06/03/25 09:57 FOLLOW-UP ragweed pollen Allergy NEEDS Verified 06/03/25 09:57 FOLLOW-UP tree and shrub pollen Allergy NEEDS Verified 06/03/25 09:57 FOLLOW-UP fesoterodine (From Toviaz) AdvReac Mild PT UNSURE Verified 06/03/25 09:57 OF REACTION cyclobenzaprine (From AdvReac Elevated BP Verified 06/03/25 09:57 Flexeril) duloxetine (From Cymbalta) AdvReac Stuttering Verified 06/03/25 09:57 meloxicam AdvReac Stuttering Verified 06/03/25 09:57 sertraline HCl (From Zoloft) AdvReac Upset Verified 06/03/25 09:57 Stomach Family History Mother Hypertension Father Hypertension Diabetes Colon cancer Sister Alzheimer disease Grandmother Stomach cancer Surgical History History of hysterectomy History of foot surgery Hx of colonoscopy Social History Smoking Status: Never smoker alcohol intake: never substance use type: does not use EXAM Physical Exam Const Vital Signs: 06/03/25 09:56 06/03/25 13:00 06/03/25 13:19 Temperature 97.3 F L 97.3 F L Temperature Source Temporal Pulse Rate 92 89 92 Respiratory Rate 17 16 17 Blood Pressure 146/93 H 146/93 H Blood Pressure Mean 110 110 Pulse Ox 100 97 100 Oxygen Delivery Method Room Air Room Air MDM MDM MDM Narrative Medical decision making narrative: 64-year-old female with past medical history of costochondritis, GERD presents for evaluation of left lateral rib pain. Patient states on 05/24/2025 she was cleaning out her car in which she bent over the seat to put a mat down. She states she developed pain in her lateral left ribs and underneath her breast. She was seen by an urgent care in which she was diagnosed with a muscle strain. She has been taking ibuprofen with some relief. Patient states that the pain has continued which is why she presents today. Pain is worse with movement and stretching. Describes it as sharp and crampy. On physical exam, patient is tender to palpation in the left lateral ribs diffusely. No obvious signs of trauma or crepitus. Palpation recreates her pain. Differential diagnosis includes but is not limited to rib contusion, rib fracture, myofascial spasm, muscle strain. Patient's physical exam as well as complaint is not consistent with cardiac chest pain. Toradol ordered for pain. Will obtain x-ray of the chest. I do not think any labs or further workup is needed. Patient in agreement. X-ray of the ribs was personally reviewed interpreted by me, ED physician. No fracture or dislocation. No pneumonia, effusion, cardiomegaly, pneumothorax. At this point in time, no clear etiology for patient's pain. I do suspect it is likely secondary to a chest wall contusion/rib contusion versus muscle strain. Patient was updated of all the results and confirmed understand the plan. Will prescribe her with a short prescription of muscle relaxers to see if this helps with pain. She is offered lidocaine patches but states she has these at home. Recommend continuing them. Tylenol and ibuprofen as needed. Follow-up with PCP. Return precautions explained. She agreed and understand the plan. Patient was discharged home Impression: 1. Left chest wall contusion/rib contusion Radiography Diagnostic Testing: Clinical Impression(s) from Imaging Studies Ribs w/Chest X-Ray 06/03/25 11:25 IMPRESSION: No rib fractures or pneumothorax. Reading Location: [facility] Discharge Plan Triage Chief Complaint: Chest Other ED Provider: Mart Galvez Dx/Rx/DC Orders Clinical Impression: Contusion of rib on left side Instructions: ED Chest Pain, Noncardiac, ED Chest Wall Contusion Prescriptions: New orphenadrine citrate 100 mg tablet extended release 100 mg PO Q12H PRN (Reason: muscle spasm) 3 Days Qty: 6 0RF No Action ergocalciferol (vitamin D2) 1,250 mcg (50,000 unit) capsule 1,250 mcg PO .COMPLEX Rx Instructions: 1,250 mcg orally every two weeks; ondansetron 4 mg tablet,disintegrating 4 mg PO Q8H PRN (Reason: nausea and vomiting) sumatriptan succinate 100 mg tablet See Rx Instructions PO .COMPLEX Rx Instructions: take 1 tab at onset of headache; if no relief, may repeat 1 tab after at least 2 hrs; max = 2 tabs/24 hrs PO fluticasone propionate [Flonase Allergy Relief] 50 mcg/actuation spray,suspension 2 spray intranasal DAILY Rx Instructions: administer into each nostril albuterol sulfate [Ventolin HFA] 90 mcg/actuation HFA aerosol inhaler 2 puff inhalation Q6H PRN (Reason: shortness of breath or wheezing) solifenacin 10 mg tablet 10 mg PO QDAY Patient Comments: pt stopped about 3 weeks ago pantoprazole 40 mg tablet,delayed release (DR/EC) 40 mg PO QDAY paroxetine HCl 40 mg tablet 40 mg PO DAILY Patient Comments: pt stopped about 3 weeks ago Asmanex Twisthaler 220 mcg/ actuation (30) aerosol powdr breath activated 1 inh inhalation QHS ibuprofen [Advil] 200 mg tablet 600 mg PO Q4H PRN (Reason: pain) Primary Care Provider: Salazar Magaña Referrals: Salazar Magaña MD [Primary Care Provider, Internal Medicine] - 3-5 Days Activity Restrictions/Additional Instructions: Continue your home ibuprofen and lidocaine patches. Recommend Tylenol as well as muscle relaxers. Do not drive or operate heavy machinery while using muscle relaxers. They can increase lightheadedness, confusion, falls. Follow-up with your primary care physician. Print Language: [place] Disposition Disposition: Home, Self Care Discharge Date/Time: 06/03/25 13:21
--- NOTE | 2025-06-03 11:25 | RAD_ITS ---
PROCEDURE: RIBS UNI MIN 3V W/PA CHEST 06/03/2025 REASON FOR EXAM: PAIN TECHNIQUE: Procedure Code: RADRIB Modality: DX Procedure: RIBS UNI MIN 3V W/PA CHEST COMPARISON: None. FINDINGS: The lungs are clear. No pleural effusion. No pneumothorax. No cardiomegaly. No free air under the diaphragm. No soft tissue abnormalities. No acute ribs or acute bony abnormalities. RAD/Ribs Uni Min 3V w/PA Chest IMPRESSION: No rib fractures or pneumothorax. Reading Location: [id number]
[2025-06-03 13:00] VITALS: PULSE 89; RESP 16; O2SAT 97
[2025-06-03 13:19] VITALS: BP 146/93; PULSE 92; RESP 17; TEMP 36.3; O2SAT 100
== END 2025-06-03 13:21 | disposition home or self-care (01) ==
PROVIDERS: Emergency Provider Surgery; PCP Internal Medicine; Visit Provider Surgery
DX: S20.212A Contusion of left front wall of thorax, initial encounter (principal); Z90.710 Acquired absence of both cervix and uterus; X50.0XXA Overexertion from strenuous movement or load, initial encounter; Y93.89 Activity, other specified; Y92.810 Car as the place of occurrence of the external cause; G47.33 Obstructive sleep apnea (adult) (pediatric); Z99.89 Dependence on other enabling machines and devices
CPT/HCPCS: 71101; 96372; 99282